=== PATIENT | female | born 1960 | race Caucasian/White ===

== ENCOUNTER → 2021-03-18 | Outpatient (CLI) | payer OTHER ==
[~2021-03-18] MED LIST: AMBIEN CR6.25 MG PO; ASPIRIN325 MG PO; EFFEXOR XR150 MG PO; FENOFIBRATE145 MG PO; GLUCOPHAGE500 MG PO; JANUVIA100 MG PO; LIPITOR TAB 1010 MG PO; LISINOPRIL10 MG PO; MACROBID 100 M100 M1 PO; METOPROLOL SUCC25 MG PO; NIASPAN500 MG PO; OMEPRAZOLE20 MG PO; PYRIDIUM200 MG PO; TRAMADOL HCL50 MG PO; TRULICITY0.75 MG/0. SQ
== END ==
LOC: RAD 09:43
DX: R10.32 Left lower quadrant pain (principal); K92.2 Gastrointestinal hemorrhage, unspecified; K59.00 Constipation, unspecified
CPT/HCPCS: 74270

== ENCOUNTER → 2021-11-10 | Outpatient (CLI) | payer OTHER ==
[~2021-11-10] MED LIST changes: +AMBIEN CR12.5 MG PO; +CYCLOBENZAPRINE10 MG PO; +DOXEPIN HCL50 MG PO; +IBUPROFEN200 MG PO; +METFORMIN HCL500 MG PO; +METFORMIN PO; +TERBINAFINE HC250 MG PO; +TYLENOL EXTRA500 MG PO; +[UNRECOGNIZED DRUG - OTHER] PO; +[UNRECOGNIZED DRUG - OTHER] PO
[2021-11-10 12:43] LABS: HEMOGLOBIN 14.8 gm/dl (12.3-15.3); RED BLOOD COUNT 4.76 M/UL (4.00-5.10); WHITE BLOOD COUNT 10.8 K/UL (4.5-11.0)
[2021-11-10 13:16] LABS: BUN/CREATININE RATIO 33 (0-10)
== END ==
LOC: OPSV2 11:00 → EDSTATUS 11:00 → OPSV2 11:46
PROVIDERS: Orthopaedic Surgery
DX: Z01.818 Encounter for other preprocedural examination (principal); M16.12 Unilateral primary osteoarthritis, left hip
CPT/HCPCS: 71046; 80048; 81001; 83036; 85027; 93005

== ENCOUNTER → 2021-11-22 | Outpatient (CLI) | payer OTHER ==
[~2021-11-22] MED LIST changes: +TRULICITY1.5 MG/0.5 SQ
[2021-11-22 13:00] LABS: BUN/CREATININE RATIO 44 (0-10)
== END ==
LOC: LAB 12:18
PROVIDERS: Orthopaedic Surgery
DX: Z01.812 Encounter for preprocedural laboratory examination (principal)
CPT/HCPCS: 80048; 86850; 86900; 86901